=== PATIENT | female | born 1965 | race Caucasian/White ===

== ENCOUNTER 2018-05-24 20:26 | Inpatient (IN) | payer OTHER ==
[~2018-05-24] VITALS: Ht 154.9 cm; Wt 88.7 kg
[~2018-05-24 20:26] MED LIST: AMLO-218 PO; ATOR10TA23; CLOP75TA19; HYDR50TA PO; METO-53 PO; VALS80TA2 PO; [UNRECOGNIZED DRUG - REMARK]
[2018-05-24] MEDS ORDERED: SOD CHLORIDE 0.9% 100 ML ONE (20:43)
[2018-05-24] MEDS ORDERED: IOHEXOL 350MG/ML 50 ML BTL ONE (20:43)
[2018-05-24] MEDS ORDERED: IOHEXOL 100 ML ONE (20:43)
[2018-05-24] MEDS ORDERED: RANI150T5 PO (21:00)
[2018-05-24] MEDS ORDERED: IBUP-1541 PO (21:00)
[2018-05-24] MEDS ORDERED: AMLO-147 PO (21:01)
[2018-05-24] MEDS ORDERED: HYDR-3672 PO (21:01)
[2018-05-24] MEDS ORDERED: PANT40TA4 PO (21:02)
[2018-05-24] MEDS ORDERED: ERGO500013 PO (21:02)
[2018-05-24] MEDS ORDERED: LOSA1TAB25 PO (21:03)
[2018-05-24] MEDS ORDERED: GABA100C14 PO (21:03)
[2018-05-24] MEDS ORDERED: ASPI-817 PO (21:03)
[2018-05-24] MEDS ORDERED: ESOM40CA PO (21:04)
[2018-05-24] MEDS ORDERED: TIOT18CA INHALATION (21:04)
[2018-05-24] MEDS ORDERED: CLON0.2T5 PO (21:05)
[2018-05-24] MEDS ORDERED: SERT-165 PO (21:05)
[2018-05-24] MEDS ORDERED: TRA100 PO (21:06)
[2018-05-24] MEDS ORDERED: FURO20TA3 PO (21:06)
[2018-05-24] MEDS ORDERED: MECL-77 PO (21:06)
--- NOTE | 2018-05-24 21:15 | ERD ---
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 Approximately 3-1/2 hours prior to arrival patient reports experiencing worsening left-sided weakness and facial numbness with slurred speech. Multiple other complaints including vague, generalized, nonradiating chest pain, sore throat, shortness of breath but denies nausea, vomiting or diaphoresis. No abdominal pain or back pain. No leg pain or swelling. No URI symptoms or cough. No fevers or chills. Patient is Cambodian-speaking and online translation services used. ROS All systems reviewed and are negative except as per history of present illness. Medications Home Meds Active Scripts Clopidogrel Bisulfate (Clopidogrel) 75 Mg Tablet, 75 MG PO DAILY, #30 TAB Prov:NORA JOSE MD 05/26/18 Reported Medications Meclizine Hcl* (Meclizine Hcl*) 25 Mg Tablet, 25 MG PO DAILY PRN for DIZZINESS, TAB 05/24/18 Trazodone Hcl* (Trazodone Hcl*) 100 Mg Tablet, 100 MG PO QHS, #30 TAB 05/24/18 Furosemide* (Furosemide*) 20 Mg Tablet, 20 MG PO DAILY, #60 TAB 05/24/18 Clonidine Hcl* (Clonidine Hcl*) 0.2 Mg Tablet, 0.2 MG PO DAILY, TAB 05/24/18 Sertraline Hcl* (Sertraline Hcl*) 100 Mg Tablet, 100 MG PO DAILY, #30 TAB 05/24/18 Tiotropium [place]* (Spiriva*) 18 Mcg Cap.w.dev, 1 CAP INHALATION DAILY, #30 CAP 05/24/18 Losartan-Hydrochlorothiazide (Losartan-HCTZ) 100-25 Mg Tab, 1 TAB PO DAILY, TAB 05/24/18 Gabapentin* (Gabapentin*) 100 Mg Capsule, 100 MG PO QHS, #90 CAP 05/24/18 Pantoprazole* (Pantoprazole*) 40 Mg Tablet.dr, 40 MG PO AC BREAKFAST, TAB 05/24/18 Ergocalciferol (Vitamin D2) (VITAMIN D2) 50,000 Unit Capsule, 56132 UNIT PO Q7D, CAP 05/24/18 Hydralazine Hcl* (Hydralazine Hcl*) 50 Mg Tab, 50 MG PO BID, #120 TAB 05/24/18 Amlodipine Besylate* (Amlodipine Besylate*) 10 Mg Tablet, 10 MG PO DAILY, #30 TAB 05/24/18 Ranitidine Hcl* (Ranitidine Hcl*) 150 Mg Tablet, 150 MG PO HS, #30 TAB 05/24/18 Ibuprofen* (Ibuprofen*) 400 Mg Tablet, 400 MG PO Q6H PRN for PAIN, TAB 05/24/18 Discontinued Reported Medications Esomeprazole Mag Trihydrate (Nexium) 40 Mg Capsule.dr, 40 MG PO DAILY, #30 CAP 05/24/18 Aspirin* (Aspirin* EC) 81 Mg Tablet.dr, 81 MG PO DAILY, TAB 05/24/18 Allergies Allergies: Coded Allergies: No Known Allergy (Unverified , 05/24/18) PMhx/Soc Reviewed History of Surgery: Yes (see note) Anesthesia Reaction: No Hx Neurological Disorder: Yes (CVA) Hx Respiratory Disorders: No Hx Cardiac Disorders: Yes (HTN, ND;) Hx Psychiatric Problems: No Hx Miscellaneous Medical Probl: Yes (see note) Hx Alcohol Use: Yes (OCCASIONALLY) Hx Substance Use: No Hx Tobacco Use: Yes Smoking Status: Current every day smoker FmHx No sudden cardiac or cancer Physical Exam Vitals Temperature: 97.6. Blood pressure 215/112. Pulse: 94. Respiration: 14. O2 saturation 96% on room air. Physical Exam Const: Alert, anxious, moderate distress Head: Atraumatic Eyes: Normal Conjunctiva. Pupils equal reactive to light, extraocular moveme nts are intact. ENT: Normal External Ears, Nose and Mouth. Neck: Full range of motion. No meningismus. Carotids 2+ bilaterally without bruits. Resp: Clear to auscultation bilaterally Cardio: Regular rate and rhythm, no murmurs Abd: Soft, non tender, non distended. Normal bowel sounds Skin: No petechiae or rashes Back: No midline or flank tenderness Ext: No cyanosis, or edema Neur: Awake and alert. Mild dysarthria. Left upper extremity/left lower extremity weakness. Psych: Normal Mood and Affect Results 24 hrs Laboratory Tests Test 05/24/18 20:30 05/24/18 20:37 05/24/18 20:55 White Blood Count 8.1 10^3/ul Red Blood Count 4.06 10^6/ul Hemoglobin 11.7 g/dl Hematocrit 35.5 % Mean Corpuscular Volume 87.4 fl Mean Corpuscular Hemoglobin 28.8 pg Mean Corpuscular 33.0 g/dl Hemoglobin Concent Red Cell Distribution Width 13.2 % Platelet Count 208 10^3/UL Mean Platelet Volume 11.0 fl Immature Granulocytes % 0.200 % Neutrophils % 60.1 % Lymphocytes % 30.1 % Monocytes % 8.0 % Eosinophils % 1.1 % Basophils % 0.5 % Nucleated Red Blood Cells % 0.0 /100WBC Immature Granulocytes # 0.020 10^3/ul Neutrophils # 4.9 10^3/ul Lymphocytes # 2.4 10^3/ul Monocytes # 0.7 10^3/ul Eosinophils # 0.1 10^3/ul Basophils # 0.0 10^3/ul Nucleated Red Blood Cells # 0.0 10^3/ul Prothrombin Time 12.6 Sec Prothrombin Time Ratio 1.0 INR International Normalized Ratio 0.93 Activated Partial Thromboplast 26.0 Sec Time Sodium Level 140 mmol/L Potassium Level 3.6 mmol/L Chloride Level 102 mmol/L Carbon Dioxide Level 28 mmol/L Anion Gap 10 Blood Urea Nitrogen 12 mg/dl Creatinine 0.49 mg/dl Est Glomerular Filtrat Rate mL/min > 60 mL/min Glucose Level 137 mg/dl Calcium Level 8.4 mg/dl Creatine Kinase 59 IU/L Creatine Kinase Index 1.2 Creatinine Kinase MB (Mass) 0.71 ng/ml Troponin I < 0.012 ng/ml Triglycerides Level 399 mg/dl Cholesterol Level 205 mg/dl LDL Cholesterol, Calculated 94 mg/dl HDL Cholesterol 31 mg/dl Cholesterol/HDL Ratio 6.6 RATIO Ethyl Alcohol Level < 10.0 mg/dl Bedside Glucose 175 mg/dL Hemoglobin A1c 5.5 % Current Medications Medications Dose Sig/Wilfred Start Time Status Last (Trade) Ordered Route PRN Stop Time Admin Dose Reason Admin IV Flush 10 ml STK-MED 05/24/18 DC 05/24/18 (NS 10 ml) ONCE .ROUTE 20:43 20:43 05/24/18 20:44 Sodium 100 ml @ ud STK-MED 05/24/18 DC 05/24/18 Chloride ONCE .ROUTE 20:43 20:43 05/24/18 20:44 Iohexol 100 ml @ ud STK-MED 05/24/18 DC 05/24/18 ONCE .ROUTE 20:43 20:43 05/24/18 20:44 Iohexol 50 ml STK-MED 05/24/18 DC 05/24/18 (Omnipaque ONCE .ROUTE 20:43 20:43 350mg/ ml) 05/24/18 20:44 Aspirin 325 mg ONCE ONCE 05/24/18 DC 05/24/18 (Aspirin) PO 22:00 21:54 05/24/18 22:01 Procedures/MDM DOCUMENTS REVIEWED: ED nurse, prior records. Left heart cath 2013 which revealed normal coronary arteries. EKG: Time: 2100. Sinus rhythm. Ventricular rate 91. Left ventricular hypertrophy. Repolarization abnormality. T wave inversions in leads II, 3, aVF, 1, V3 through V6 which is unchanged from the EKG of November 2013. No ectopy. My Interpretation IMAGING: PROCEDURE: Noncontrast CT Head. CLINICAL INDICATION: Code stroke. Acute neurological deficit. TECHNIQUE: Noncontrast CT of the head was obtained. The administered radiation dose was CTDI vol = 40 mGy, DLP = 634 mGy-cm. DICOM images are available. One or more of the following dose reduction techniques were used: Automated exposure control, Adjustment of the mA and/or kV according to patient size, or Use of iterative reconstruction technique. COMPARISON: CT brain 03/19/2012 FINDINGS: There is no acute intracranial hemorrhage, midline shift, or mass effect. The cerebral dotson-white matter differentiation appears preserved. No extra-axial co llection is seen. The cerebral sulci and ventricles are within normal limits in size and configuration for patient's age. The cerebral attenuation is within normal limits. A small right sub lenticular cyst is noted. The basilar cisterns are preserved. The brainstem and cerebellum are grossly unremarkable, although suboptimally evaluated with CT secondary to beam-hardening artifact. The visualized orbits are unremarkable. The visualized paranasal sinuses and mastoid air cells are well-aerated. There is partial pneumatization of the bilateral anterior clinoid processes and greater wing of the right sphenoid bone. No acute calvarial fracture or suspicious osseous lesion is identified. IMPRESSION: No acute intracranial hemorrhage, mass effect, extra-axial fluid collection, or evidence of large vascular territory acute transcortical infarct. If there is continued clinical concern for acute ischemia, MRI brain with diffusion weighted imaging may provide a more sensitive evaluation. Call report was made to Dr. Bryson at 20:42 on 05/24/2018. RPTAT: AA Physician Rubén Date Time Electronically viewed and signed by Sumeet Akins Physician on 05/24/2018 20:47 RC/ PROCEDURE: CTA Head and neck. CLINICAL INDICATION: Code stroke. Acute neurologic deficit. TECHNIQUE: CTA of the head and neck was obtained. Images were obtained following the intravenous contrast administration of 125 cc Omnipaque 350 contrast. The administered radiation dose was CTDI vol = 7.4, 18.3 mGy, DLP = 634.7 mGy-cm. DICOM images are available. Coronal and sagittal as well as maximal intensity projection reformations were obtained. 3-D reconstructions were obtained. One or more of the following dose reduction techniques were used: Automated exposure control, Adjustment of the mA and/or kV according to patient size, or Use of iterative reconstruction technique. COMPARISON: Noncontrast CT of the head from the same day. FINDINGS: CTA neck: Dental amalgam related streak artifact limits evaluation at distal cervical levels. Motion artifact from the aortic arch to the craniocervical junction further limits evaluation. Aorta: The visualized aortic arch is normal in caliber. There is common origin of the innominate artery and left common carotid artery off the aortic arch, a normal anatomic variant. Right common carotid artery: Patent without evidence of stenosis. Right internal carotid artery: Patent without evidence of stenosis. Right external carotid artery: Patent without evidence of stenosis. Left common carotid artery: Patent without evidence of stenosis. Left internal carotid artery: Patent without evidence of stenosis. Left external carotid artery: Patent without evidence of stenosis. V1/V2/V3 vertebral arteries: Patent bilaterally without evidence of stenosis. Vertebral artery dominance: The right vertebral artery is slightly dominant. CTA head: Carotid arteries: Patent bilaterally without evidence of stenosis. Anterior cerebral arteries: Patent bilaterally without evidence of stenosis. Middle cerebral arteries: Patent bilaterally without evidence of stenosis. Posterior cerebral arteries: Patent bilaterally without evidence of stenosis. Anterior communicating artery: Present. Posterior communicating arteries: Not visualize bilaterally and likely small or absent bilaterally. Basilar artery: Patent without evidence of stenosis. V4 Vertebral arteries: Patent bilaterally without evidence of stenosis. Aneurysm: No cerebral aneurysm is identified. Venous sinuses: Patent. CT neck: There is no cervical adenopathy. The thyroid gland, as visualized, is grossly unremarkable. Limited evaluation of the partially imaged upper lungs reveals mild bilateral posterior dependent atelectasis. There is minimal degenerative enthesopathy of the visualized spine. IMPRESSION: CTA Head 1. No intracranial large arterial thrombus or occlusion. 2. No intracranial large arterial significant stenosis. 3. No cerebral aneurysm. CTA Neck 1. Slightly limited evaluation secondary to dental amalgam related streak artifact and diffuse motion artifact. 2. No bilateral cervical internal carotid artery stenosis by NASCET criteria. As per NASCET criteria, direct measurement of vessel diameter was made in reference to measurement of the ipsilateral distal internal carotid artery diameter. 3. Patent bilateral V1-V3 vertebral arteries without evidence of significant stenosis. Further findings described above. Call report was made to Dr. Bryson at 21:05 on 05/24/2018. RPTAT: AA Physician Rubén Date Time Electronically viewed and signed by Physician Rubén on 05/24/2018 21:10 RC/ CRITICAL CARE TIME: Due to the high probability of sudden clinically significant neurologic, cardiovascular and hemodynamic deterioration, this patient with acute neurologic deficits and chest pain required multiple, frequent reevaluations of vital signs and response to therapy. Additional critical care time was spent in obtaining supplemental history from family, extensive review of prior medical records, interpretation of relevant clinical data, consultation with radiology, neurology as well as arranging for admission and ongoing care with . TOTAL CRITICAL CARE TIME: 40 minutes not including other separately reportable procedures. MEDICAL DECISION MAKIN-year-old female with a history of hypertension, hyperlipidemia, multiple CVAs most recently October 2017 treated with TPA with residual left-sided weakness and heart disease presents to the ED via rescue ambulance with worsening left-sided weakness as a potential stroke. Last known normal was when patient went to sleep at approximately 1 AM. Within 10 minutes of arrival NIH stroke scale: 5. Code stroke protocol initiated. CT of the brain to evaluate for hemorrhage, infarct, mass is unremarkable. CTA of the head/neck reveals no evidence of large vessel occlusion. Tele-neurology consult obtained. Refer to Dr. Mustafa's note. No indication for TPA or endovascular intervention. As per family patient is almost completely back to baseline. Possible TIA. Hypertension with arrival blood pressure 215/112 but 10 minutes later was down to 183/78 Without intervention. Permissive hypertension. EKG reveals left ventricular hypertrophy but no acute ischemic changes or dysrhythmia, unchanged from November 2013. Chest pain and sore throat/tightness of uncertain etiology. No signs of an acute allergic reaction, angioedema, pharyngitis or parapharyngeal infection. ACS considered but no ischemic EKG changes or elevated troponin. Aspirin given. No radiographic evidence of pne umonia or pneumothorax. Pulmonary embolism is unlikely and CT pulmonary angiogram deferred. Admit to telemetry for further evaluation and management. Counseled patient and family regarding diagnostic workup, diagnosis and need for followup. Understands to return to ED if symptoms recur, worsen or any other concerns. Departure Diagnosis: Primary Impression: Acute weakness Additional Impressions: History of CVA with residual deficit Hypertension Hypertension type: essential hypertension Qualified Codes: I10 - Essential (primary) hypertension Chest pain of uncertain etiology Condition: Serious JACEY BRYSON MD May 24, 2018 21:15
--- NOTE | 2018-05-24 21:33 | STROKE ---
Date/Time of Note Date/Time of Note DATE: 05/24/18 TIME: 21:31 Patient Information General Arrival Date Age 53 Gender female Weight 79.55 kg POC Glucose Glucose Result Bedside Glucose - 72 Hours Test 05/24/18 20:37 Bedside Glucose 175 mg/dL (70-220) Vital Signs Vital Signs Vital Signs Date Temp Pulse Resp B/P (MAP) Pulse Ox O2 O2 Flow FiO2 Time Delivery Rate 05/24/18 Nasal 3 20:37 Cannula 05/24/18 88 20 183/78 98 20:37 (113) Patient History Current Medications Allergies: Coded Allergies: No Known Allergy (Unverified , 05/24/18) Labs Coagulation Labs: Coagulation Test 05/24/18 20:30 Activated Partial Thromboplast Time 26.0 Sec (23.0-35.0) History & Physical History of Present Illness 53 M PMH HTN, stroke with residual left hemiparesis LKW 1700 PST with worsening of her baseline left-sided weakness. NCHCT without acute pathology per [facility]. Patien[facility] reports shortness of breath and her "throat closing up". Patient reports worsening of her baseline weakness in her left arm and leg. NIH Stroke Scale NIH Stroke Scale [id number] Total Score: [id number] Date/Time Recorded DATE: 05/24/18 TIME: 21:11 Submitted By Stephan Isaac t-PA Imaging Review Date/Time Imaging Reviewed DATE: 05/24/18 TIME: 21:31 t-PA Administration Recommendation: No Weight 79.55 kg Recommedation submitted by Stephan Isaac Recommendations Recommendation 53 F with baseline left hemiparesis from prior stroke, with worsening of her baseline left hemiparesis today. No new focal deficits. Family member at bedside is reporting that her hemiparesis is at her baseline. In the absence of new, focal neurologic deficits stroke is less likely. Patient's major complaint is of shortness of breath and throat "closing" sensation. Could be recrudescence in setting of other pathology. CTA and NCHCT without acute pathology. - Agree with work-up of dyspnea and ENT causes of dysphagia - Further care per local Neurology team STEPHAN ISAAC MD May 24, 2018 21:33
[2018-05-24] MEDS ORDERED: ASPIRIN 325 MG TAB PO ONE (22:00)
[2018-05-24] MEDS ORDERED: ONDANSETRON 4 MG INJ IV PRN (22:30)
[2018-05-24] MEDS ORDERED: ACETAMINOPHEN 325 MG TAB PO PRN (22:30)
--- NOTE | 2018-05-24 23:56 | HP ---
Date/Time of Note Date/Time of Note DATE: 05/24/18 TIME: 23:56 Assessment/Plan VTE Prophylaxis Pharmacological prophylaxis: heparin Lines/Catheters IV Catheter Type (from Nrs): Saline Lock Assessment/Plan Assessment/Plan 1. Probable TIA vs new CVA -Patient with a history of multiple CVAs with left-sided hemiparesis. According to family, it seems like her hemiparesis is at baseline -Head CT and angiogram negative for acute findings -We will order MRI of the brain -Seen by telemetry neurologist. Will place a formal neurology consult -Continue antiplatelet and statin -PT eval 2. Hypertensive emergency: BP better controlled. Adjust meds as needed 3. Dysphagia, throat pain -speech/swallow eval -CT neck 4. GERD: Continue PPI 5. Depression: Continue sertraline Result Diagram: 05/24/18202905/24/182029 Results 24hrs Laboratory Tests Test 05/24/18 20:30 05/24/18 20:37 05/24/18 20:55 White Blood Count 8.1 Red Blood Count 4.06 L Hemoglobin 11.7 L Hematocrit 35.5 L Mean Corpuscular Volume 87.4 Mean Corpuscular Hemoglobin 28.8 L Mean Corpuscular Hemoglobin Concent 33.0 Red Cell Distribution Width 13.2 Platelet Count 208 Mean Platelet Volume 11.0 H Immature Granulocytes % 0.200 Neutrophils % 60.1 Lymphocytes % 30.1 Monocytes % 8.0 Eosinophils % 1.1 Basophils % 0.5 Nucleated Red Blood Cells % 0.0 Immature Granulocytes # 0.020 Neutrophils # 4.9 Lymphocytes # 2.4 Monocytes # 0.7 Eosinophils # 0.1 Basophils # 0.0 Nucleated Red Blood Cells # 0.0 Prothrombin Time 12.6 Prothrombin Time Ratio 1.0 INR International Normalized Ratio 0.93 Activated Partial Thromboplast Time 26.0 Sodium Level 140 Potassium Level 3.6 Chloride Level 102 Carbon Dioxide Level 28 Anion Gap 10 Blood Urea Nitrogen 12 Creatinine 0.49 Est Glomerular Filtrat Rate mL/min > 60 Glucose Level 137 Calcium Level 8.4 Creatine Kinase 59 Creatine Kinase Index 1.2 Creatinine Kinase MB (Mass) 0.71 Troponin I < 0.012 Triglycerides Level 399 H Cholesterol Level 205 H LDL Cholesterol, Calculated 94 HDL Cholesterol 31 L Cholesterol/HDL Ratio 6.6 Ethyl Alcohol Level < 10.0 H Bedside Glucose 175 Hemoglobin A1c 5.5 HPI/ROS Admit Date/Time Admit Date/Time Hx of Present Illness This is a 53-year-old female with a history of hypertension, GERD, depression, multiple CVAs with residual left-sided deficit who presented to the ER complaining of worsening left-sided deficit as well as slurred speech. Patient also complains of dysphagia/throat pain. She appears weak, speaking slowly. When presents to ER, BP was 215/112. Head CT and CT angiogram of the head and neck without acute findings. Patient was evaluated by the tele-neurologist. According to his notes, family at the bedside reported that her hemiparesis is at baseline. He had no additional recommendation. PMH/Family/Social Past Medical History Medications Current Medications Ondansetron HCl (Zofran Inj) 4 mg BRIDGE ORDER PRN IV NAUSEA AND/OR VOMITING; Start 05/24/18 at 22:30; Stop 05/25/18 at 22:29 Acetaminophen (Tylenol Tab) 650 mg ER BRIDGE PRN PO MILD PAIN(1-3)OR ELEVATED TEMP; Start 05/24/18 at 22:30; Stop 05/25/18 at 22:29 Coded Allergies: No Known Allergy (Unverified , 05/24/18) Family History Significant Family History: no pertinent family hx Social History Alcohol Use: none Smoking Status: Current every day smoker Drug Use: none Exam/Review of Systems Vital Signs Vitals Vital Signs Date Temp Pulse Resp B/P (MAP) Pulse Ox O2 O2 Flow FiO2 Time Delivery Rate 05/24/18 Nasal 3 20:37 Cannula 05/24/18 88 20 183/78 98 20:37 (113) Exam Exam Constitutional: alert, oriented, well developed, other Head: normocephalic, atraumatic Respiratory: normal air movement Cardiovascular: regular rate and rhythm Gastrointestinal: soft Extremities: normal pulses PMH: see HPI PSH: see HPI . MANNY SAMPSON MD May 24, 2018 23:56
[2018-05-25] VITALS (9 sets, daily range): BP systolic 141–186; BP diastolic 67–89; PULSE 72–88; RESP 14–20; Ht 154.9 cm; Wt 88.7 kg
[2018-05-25] MEDS ORDERED: ONDANSETRON 4 MG INJ IV PRN (06:30)
[2018-05-25] MEDS ORDERED: NACL 0.9% 3 ML SYG IV SCH (06:30)
[2018-05-25] MEDS ORDERED: ACETAMINOPHEN 325 MG TAB PO PRN (06:30)
[2018-05-25] MEDS ORDERED: MECLIZINE 25 MG TAB PO PRN (06:30)
[2018-05-25] MEDS: ERGOCALCIFEROL 50,000 UNIT CAP PO SCH ×2 (06:30→12:33)
[2018-05-25] MEDS: PANTOPRAZOLE (EC) 40 MG TAB PO SCH ×2 (07:00→11:17)
[2018-05-25] MEDS: FUROSEMIDE 20 MG TAB PO SCH ×2 (09:00→11:26)
[2018-05-25] MEDS: SERTRALINE 100 MG TAB PO SCH ×2 (09:00→11:25)
[2018-05-25] MEDS: TIOTROPIUM 18 MCG CAPSULE INHA DEV INH SCH (09:00)
[2018-05-25] MEDS: ASPIRIN (EC) 81 MG TAB PO SCH ×2 (09:00→11:25)
[2018-05-25] MEDS: LOSARTAN 50 MG TAB PO SCH ×2 (09:00→11:25)
[2018-05-25] MEDS: HYDROCHLOROTHIAZIDE 25 MG TAB PO SCH ×2 (09:00→11:25)
[2018-05-25] MEDS: AMLODIPINE 10 MG TAB PO SCH ×2 (09:00→11:17)
[2018-05-25] MEDS: ENOXAPARIN 40 MG/0.4 ML SYG SC SCH (10:55)
--- NOTE | 2018-05-25 14:39 | PN ---
Date/Time of Note Date/Time of Note DATE: 05/25/18 TIME: 14:30 Assessment/Plan VTE Prophylaxis Risk score (from Ns)>0 risk: 2 SCD applied (from Ns): Yes Pharmacological prophylaxis: LMWH Lines/Catheters IV Catheter Type (from Nrs): Saline Lock Urinary Cath still in place: No Assessment/Plan Assessment/Plan 1. Probable TIA, follow up with MRI 2. History of multiple CVAs with left-sided hemiparesis, aspirin, cannot tolerate lipitor on crestor, PT eval 3. Hypertensive emergency, add norvasc 4. GERD: Continue PPI 5. Depression: Continue sertraline 6. DVT prophylaxis: lovenox Result Diagram: 05/25/18 0647 05/25/18 0647 Results 24hrs Laboratory Tests Test 05/24/18 20:30 05/24/18 20:37 05/24/18 20:55 05/25/18 00:24 White Blood Count 8.1 Red Blood Count 4.06 L Hemoglobin 11.7 L Hematocrit 35.5 L Mean Corpuscular 87.4 Volume Mean Corpuscular 28.8 L Hemoglobin Mean Corpuscular 33.0 Hemoglobin Concent Red Cell 13.2 Distribution Width Platelet Count 208 Mean Platelet Volume 11.0 H Immature 0.200 Granulocytes % Neutrophils % 60.1 Lymphocytes % 30.1 Monocytes % 8.0 Eosinophils % 1.1 Basophils % 0.5 Nucleated Red Blood 0.0 Cells % Immature 0.020 Granulocytes # Neutrophils # 4.9 Lymphocytes # 2.4 Monocytes # 0.7 Eosinophils # 0.1 Basophils # 0.0 Nucleated Red Blood 0.0 Cells # Prothrombin Time 12.6 Prothrombin Time 1.0 Ratio INR International 0.93 Normalized Ratio Activated 26.0 Partial Thromboplast Time Sodium Level 140 Potassium Level 3.6 Chloride Level 102 Carbon Dioxide Level 28 Anion Gap 10 Blood Urea Nitrogen 12 Creatinine 0.49 Est Glomerular > 60 Filtrat Rate mL/min Glucose Level 137 Calcium Level 8.4 Creatine Kinase 59 Creatine Kinase 1.2 Index Creatinine Kinase MB 0.71 (Mass) Troponin I < 0.012 Triglycerides Level 399 H Cholesterol Level 205 H LDL Cholesterol, 94 Calculated HDL Cholesterol 31 L Cholesterol/HDL 6.6 Ratio Ethyl Alcohol Level < 10.0 H Bedside Glucose 175 Hemoglobin A1c 5.5 Urine Color STRAW Urine Clarity CLEAR Urine pH 7.0 Urine Specific 1.050 H [place] Urine Ketones NEGATIVE Urine Nitrite NEGATIVE Urine Bilirubin NEGATIVE Urine Urobilinogen NEGATIVE Urine Leukocyte NEGATIVE Esterase Urine Hemoglobin NEGATIVE Urine Glucose NEGATIVE Urine Total Protein NEGATIVE Urine Opiates Screen NEGATIVE Urine Barbiturates NEGATIVE Urine Amphetamines NEGATIVE Screen Urine NEGATIVE Benzodiazepines Screen Urine Cocaine Screen NEGATIVE Urine Cannabinoids NEGATIVE Test 05/25/18 06:47 White Blood Count 6.2 # Red Blood Count 4.44 Hemoglobin 12.7 Hematocrit 39.2 Mean Corpuscular 88.3 Volume Mean Corpuscular 28.6 L Hemoglobin Mean Corpuscular 32.4 Hemoglobin Concent Red Cell 13.4 Distribution Width Platelet Count 208 Mean Platelet Volume 11.2 H Immature 0.200 Granulocytes % Neutrophils % 52.3 Lymphocytes % 36.0 Monocytes % 8.8 Eosinophils % 1.9 Basophils % 0.8 Nucleated Red Blood 0.0 Cells % Immature 0.010 Granulocytes # Neutrophils # 3.2 Lymphocytes # 2.2 Monocytes # 0.5 Eosinophils # 0.1 Basophils # 0.1 Nucleated Red Blood 0.0 Cells # Sodium Level 141 Potassium Level 4.1 Chloride Level 108 Carbon Dioxide Level 27 Anion Gap 6 Blood Urea Nitrogen 11 Creatinine 0.49 Est Glomerular > 60 Filtrat Rate mL/min Glucose Level 111 Calcium Level 9.3 Magnesium Level 2.3 Total Bilirubin 0.4 Direct Bilirubin 0.00 Indirect Bilirubin 0.4 Aspartate Amino 26 Transf (AST/SGOT) Alanine 46 Aminotransferase (AL T/SGPT) Alkaline Phosphatase 109 Total Protein 7.0 Albumin 3.8 Globulin 3.20 Albumin/Globulin 1.18 Ratio Subjective 24 Hr Interval Summary Free Text/Dictation left sided weakness, returns t baseline today Exam/Review of Systems Vital Signs Vitals Vital Signs Date Temp Pulse Resp B/P (MAP) Pulse Ox O2 O2 Flow FiO2 Time Delivery Rate 05/25/18 152/84 12:42 (106) 05/25/18 85 12:00 05/25/18 98.6 20 98 Nasal 11:30 Cannula 05/25/18 2.0 09:02 Exam Constitutional: alert, oriented, well developed, obese Head: normocephalic, atraumatic Eyes: nl conjunctiva, EOMI, nl lids, nl sclera, PERRL ENMT: nl external ears & nose, nl lips & teeth, nl nasal mucosa & septum Neck: supple, non-tender Respiratory: clear to auscultation, normal air movement; No congested cough, No crackles/rales, No diminished breath sounds, No intercostal retraction, No labored breathing, No respirations, No tactile ann-marie mitus, No wheezing, No other Cardiovascular: regular rate and rhythm, nl pulses; No bruits, No diastolic murmur, No edema, No gallop, No irregular rhythm, No jugular venous distention (JVD), No murmurs/extra sounds, No rub, No systolic murmur, No S3, No S4, No other Gastrointestinal: soft, nl liver, spleen, non-tender Musculoskeletal: nl extremities to inspection Extremities: normal pulses; No calf tenderness, No cyanosis, No clubbing, No edema, No pitting pedal edema, No palpable cord, No tenderness, No other Neurological: 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 II-XII intact, nl mental status, nl speech, focal weakness (LLE/LUE 3/5) Medications Medications Current Medications Ondansetron HCl (Zofran Inj) 4 mg BRIDGE ORDER PRN IV NAUSEA AND/OR VOMITING; S tart 05/24/18 at 22:30; Stop 05/25/18 at 22:29 Acetaminophen (Tylenol Tab) 650 mg ER BRIDGE PRN PO MILD PAIN(1-3)OR ELEVATED TEMP; Start 05/24/18 at 22:30; Stop 05/25/18 at 22:29 IV Flush (NS 3 ml) 3 ml PER PROTOCOL IV ; Start 05/25/18 at 06:30 Ondansetron HCl (Zofran Inj) 4 mg Q6H PRN IV NAUSEA AND/OR VOMITING; Start 05/25/18 at 06:30 Acetaminophen (Tylenol Tab) 650 mg Q6H PRN PO PAIN LEVEL 1-3 OR FEVER; Start 05/25/18 at 06:30 Enoxaparin Sodium (Lovenox) 40 mg DAILY SC Last administered on 05/25/18at 10:55; Admin Dose 40 MG; Start 05/25/18 at 09:00 Amlodipine Besylate (Norvasc) 10 mg DAILY PO Last administered on 05/25/18at 11:17; Admin Dose 10 MG; Start 05/25/18 at 09:00 Aspirin (Halfprin) 81 mg DAILY PO Last administered on 05/25/18at 11:25; Admin Dose 81 MG; Start 05/25/18 at 09:00 Ergocalciferol (Drisdol) 50,000 unit Q7D PO Last administered on 05/25/18at 12:33; Admin Dose 50,000 UNIT; Start 05/25/18 at 06:30 Furosemide (Lasix) 20 mg DAILY PO Last administered on 05/25/18at 11:26; Admin Dose 20 MG; Start 05/25/18 at 09:00 Gabapentin (Neurontin) 100 mg QHS PO ; Start 05/25/18 at 21:00 Hydralazine HCl (Apresoline) 50 mg BID PO Last administered on 05/25/18at 11:17; Admin Dose 50 MG; Start 05/25/18 at 09:00 Meclizine HCl (Antivert) 25 mg DAILY PRN PO prn; Start 05/25/18 at 06:30 Pantoprazole (Protonix Tab) 40 mg AC BREAKFAST PO Last administered on 05/25/18at 11:17; Admin Dose 40 MG; Start 05/25/18 at 07:00 Ranitidine HCl (Zantac) 150 mg HS PO ; Start 05/25/18 at 21:00 Sertraline HCl (Zoloft) 100 mg DAILY PO ; Start 05/25/18 at 09:00 Tiotropium [place] (Spiriva) 18 inh DAILY INH ; Start 05/25/18 at 09:00 Trazodone HCl (Desyrel) 100 mg QHS PO ; Start 05/25/18 at 21:00 Losartan Potassium (Cozaar) 100 mg DAILY PO Last administered on 05/25/18at 11:25; Admin Dose 100 MG; Start 05/25/18 at 09:00 Hydrochlorothiazide (Hydrochlorothiazide) 25 mg DAILY PO Last administered on 05/25/18at 11:25; Admin Dose 25 MG; Start 05/25/18 at 09:00 NORA JOSE MD May 25, 2018 14:39
--- NOTE | 2018-05-25 15:36 | RADRPT ---
Echocardiogram Report Patient Name: RONAL PEPPER Gender: Female Date: 1965 Study Date: 25-May-2018 Customer Orders Clerk: TB Location: [id number] Ref. Physician: MANNY SAMPSON Quality: Adequate Procedures: Transthoracic echocardiogram with complete 2D, M-Mode, and doppler examination. Indications: Cerebrovascular Accident. Transient Ischemic Attack. 2D/M Mode Doppler Measurement Value Normal Ranges Measurement Value Normal Ranges LVIDd 2D 4.1 3.5 - 5.6 cm AV Mean Wade 0.7 m/sec LVIDs 2D 3.0 2.1 - 4.1 cm AV Mean PG 2.0 mmHg LVPWd 2D 0.9 0.6 - 1.1 cm AV Peak Wade 0.9 m/sec IVSd 2D 1.2 0.6 - 1.1 cm AV Peak PG 3.0 mmHg AoR Diam 2D 2.8 2.0 - 3.7 cm AV VTI 21.6 cm LA/Ao 2D 1 0 - 1 LVOT Mean Wade 0.7 m/sec EF 2D 51.0 50.0 - 65.0 % LVOT Mean PG 2.0 mmHg LA Dimen 2D 3.7 2.3 - 4.0 cm LVOT Peak Wade 0.9 m/sec IVC Diam 1.7 1.2 - 2.0 LVOT Peak PG 4.0 mmHg MV E Peak Wade 0.9 m/sec MV A Peak Wade 1.0 m/sec MV E/A 0.9 MV PHT 72.0 msec MV Decel Time 243 msec MV Decel [place] 4 MV E/A 0.9 MV PHT 72.0 msec MVA PHT 3.1 cm2 MR Peak PG 103.0 mmHg MR Peak Wade 5.1 m/sec TR Peak Wade 2.1 m/sec TR Peak PG 18.0 mmHg RVSP 21.0 mmHg RA Pressure 3.0 Findings Left Ventricle: Normal left ventricular systolic function. Normal left ventricular cavity size. Normal left ventricular wall thickness. Ejection fraction is visually estimated at 5560 %. Tissue Doppler/Mitral Doppler indices are consistent with impaired relaxation (Stage I diastolic dysfunction). Right Ventricle: Normal right ventricular size. Normal right ventricular systolic function. Left Atrium: The left atrium is normal in size. Right Atrium: The right atrium is normal in size. RA Pressure=3. Mitral Valve: Normal appearance and function of the mitral valve with trace physiologic regurgitation. Aortic Valve: Normal appearance of the aortic valve. No significant aortic stenosis or insufficiency. Tricuspid Valve: Normal appearance and function of the tricuspid valve with trace physiologic regurgitation. Normal right ventricular systolic pressure. Estimated peak PA systolic pressure 21 mmHg. Pulmonic Valve: Normal pulmonic valve appearance. Pericardium: Normal pericardium with no significant pericardial effusion. Aorta: Normal aortic root. IVC: Normal size and normal respiratory collapse consistent with normal right atrial pressure. Conclusions 1.Normal left ventricular systolic function. Normal left ventricular cavity size. Normal left ventricular wall thickness. Ejection fraction is visually estimated at 55-60 %. Tissue Doppler/Mitral Doppler indices are consistent with impaired relaxation (Stage I diastolic dysfunction). 2.Normal appearance and function of the mitral valve with trace physiologic regurgitation. 3.Normal appearance and function of the tricuspid valve with trace physiologic regurgitation. Normal right ventricular systolic pressure. Estimated peak PA systolic pressure 21 mmHg. Electronically Signed By: Omega Churchill 25-May-2018 15:35:34 -0800 Patient Name: RONAL PEPPER Study Date: 25-May-2018 [id number]
[2018-05-25] MEDS ORDERED: traZODone 100 MG TAB PO SCH (21:00)
[2018-05-25] MEDS ORDERED: GABAPENTIN 100 MG CAP PO SCH (21:00)
[2018-05-25] MEDS ORDERED: RANITIDINE 150 MG TAB PO SCH (21:00)
[2018-05-26] VITALS (10 sets, daily range): BP systolic 102–137; BP diastolic 59–89; PULSE 16–97; RESP 1–19
[2018-05-26] MEDS: PANTOPRAZOLE (EC) 40 MG TAB PO SCH (06:04)
[2018-05-26] MEDS ORDERED: INFLUENZA VIRUS VACCINE 0.5 ML (DISPENSING) IM* ONE (09:00)
[2018-05-26] MEDS: SERTRALINE 100 MG TAB PO SCH (09:00)
[2018-05-26] MEDS: ASPIRIN (EC) 81 MG TAB PO SCH (09:01)
[2018-05-26] MEDS: LOSARTAN 50 MG TAB PO SCH (09:03)
[2018-05-26] MEDS: HYDROCHLOROTHIAZIDE 25 MG TAB PO SCH (09:04)
[2018-05-26] MEDS: TIOTROPIUM 18 MCG CAPSULE INHA DEV INH SCH (09:04)
[2018-05-26] MEDS: AMLODIPINE 10 MG TAB PO SCH (09:06)
[2018-05-26] MEDS: FUROSEMIDE 20 MG TAB PO SCH (09:06)
[2018-05-26] MEDS: ENOXAPARIN 40 MG/0.4 ML SYG SC SCH (09:07)
[2018-05-26] MEDS ORDERED: CLOP75TA27 PO ×2 (14:56→14:57)
[2018-05-26] MEDS ORDERED: CLOPIDOGREL 75 MG TAB PO SCH (15:00)
--- NOTE | 2018-05-26 15:04 | DS ---
Date/Time of Note Date/Time of Note DATE: 05/26/18 TIME: 14:58 Discharge Summary Admission/Discharge Info Admit Date/Time May 24, 2018 at 22:17 Discharge Date/Time Discharge Diagnosis 1. Probable TIA, negative brain MRI, change aspirin to plavix, follow up with PCP and neurology 2. History of multiple CVAs with left-sided hemiparesis, plavix and crestor 3. Hypertension, controlled 4. GERD: Continue PPI 5. Depression: Continue sertraline Patient Condition: Stable Procedures PROCEDURE: MR Brain noncontrast. CLINICAL INDICATION: Left-sided numbness/paresthesias. TECHNIQUE: Multiplanar multisequence noncontrast MRI of the brain was performed. COMPARISON: CT and CTA brain 05/24/2018 FINDINGS: There is no restricted diffusion to suggest acute ischemia/infarct. There is no evidence of acute intracranial hemorrhage, midline shift, or mass effect. No extra-axial fluid collection is seen. The cerebral sulci and ventricles are within normal limits in size and configuration for patient's age. Prominent perivascular spaces are noted in the bilateral anterior perforated substance. The cerebral signal intensity is within normal limits. The basilar cisterns are preserved. The brainstem and cerebellum appear within normal limits in size, morphology, and signal intensity. GRE images show no evidence of hemosiderin deposition. The sella, parasellar, and suprasellar regions are unremarkable. The intracranial large vascular flow voids are preserved, suggesting patency. The orbits are unremarkable. The visualized paranasal sinuses and mastoid air cells appear well-aerated. No destructive osseous lesion is detected. IMPRESSION: No evidence of an acute intracranial process. Further findings as detailed above. RPTAT: HR[facility] Physician Rubén Date Time Electronically viewed and signed by Physician Rubén on 05/25/2018 19:04 PROCEDURE: CT neck without contrast CLINICAL INDICATION: DYSPHAGIA TECHNIQUE: Continuous axial CT images were obtained through the neck. Coronal and sagittal reconstructions were performed. No intravenous contrast was administered.. The calculated radiation dose measures 242 mGy centimeters. The CTDI measures 10 mGy One or more of the following dose reduction techniques were used: Automated exposure control. Adjustment of the mA and/or kV according to patient size. Use of iterative reconstruction technique. COMPARISON: none FINDINGS: The nasopharynx, oropharynx, hypopharynx, and larynx appear normally patent, without abnormal mass or soft tissue thickening. The parotid glands, sub mandibular glands, and sublingual glands appear normal in size and configuration. The oral tongue and base of tongue appear unremarkable. The floor of mouth appears normal. There is scattered bilateral level II lymph nodes, without pathologic enlarge ment identified. Limited images the lung apices are unremarkable. The cervical spine appears intact. There is a retention cyst or polyp in the right maxillary sinus. IMPRESSION: 1. No abnormal neck mass or pathologic enlarged adenopathy identified on noncontrast exam. 2. Mild chronic sinusitis change. RPTAT: HBST .Mihir Salazar MD, MD Date Time Electronically viewed and signed by .Mihir Salazar MD, on 05/25/2018 22:17 .T/ Hospital Course This is a 53-year-old female with a history of hypertension, GERD, depression, multiple CVAs with residual left-sided deficit who presented to the ER complaining of worsening left-sided deficit as well as slurred speech. Patient also complains of dysphagia/throat pain. She appears weak, speaking slowly. When presents to ER, BP was 215/112. Head CT and CT angiogram of the head and neck without acute findings. Patient was evaluated by the tele-neurologist. According to his notes, family at the bedside reported that her hemiparesis is at baseline. MRI of brain no new infarction or bleeding. I will change her aspirin to plavix and have her fol;low up with PCP and neurologist outpatient. Home Meds Active Scripts Clopidogrel Bisulfate (Clopidogrel) 75 Mg Tablet, 75 MG PO DAILY, #30 TAB Prov:NORA JOSE MD 05/26/18 Reported Medications Meclizine Hcl* (Meclizine Hcl*) 25 Mg Tablet, 25 MG PO DAILY PRN for DIZZINESS, TAB 05/24/18 Trazodone Hcl* (Trazodone Hcl*) 100 Mg Tablet, 100 MG PO QHS, #30 TAB 05/24/18 Furosemide* (Furosemide*) 20 Mg Tablet, 20 MG PO DAILY, #60 TAB 05/24/18 Clonidine Hcl* (Clonidine Hcl*) 0.2 Mg Tablet, 0.2 MG PO DAILY, TAB 05/24/18 Sertraline Hcl* (Sertraline Hcl*) 100 Mg Tablet, 100 MG PO DAILY, #30 TAB 05/24/18 Tiotropium [place]* (Spiriva*) 18 Mcg Cap.w.dev, 1 CAP INHALATION DAILY, #30 CAP 05/24/18 Losartan-Hydrochlorothiazide (Losartan-HCTZ) 100-25 Mg Tab, 1 TAB PO DAILY, TAB 05/24/18 Gabapentin* (Gabapentin*) 100 Mg Capsule, 100 MG PO QHS, #90 CAP 05/24/18 Pantoprazole* (Pantoprazole*) 40 Mg Tablet.dr, 40 MG PO AC BREAKFAST, TAB 05/24/18 Ergocalciferol (Vitamin D2) (VITAMIN D2) 50,000 Unit Capsule, 87157 UNIT PO Q7D, CAP 05/24/18 Hydralazine Hcl* (Hydralazine Hcl*) 50 Mg Tab, 50 MG PO BID, #120 TAB 05/24/18 Amlodipine Besylate* (Amlodipine Besylate*) 10 Mg Tablet, 10 MG PO DAILY, #30 TAB 05/24/18 Ranitidine Hcl* (Ranitidine Hcl*) 150 Mg Tablet, 150 MG PO HS, #30 TAB 05/24/18 Ibuprofen* (Ibuprofen*) 400 Mg Tablet, 400 MG PO Q6H PRN for PAIN, TAB 05/24/18 Discontinued Reported Medications Esomeprazole Mag Trihydrate (Nexium) 40 Mg Capsule.dr, 40 MG PO DAILY, #30 CAP 05/24/18 Aspirin* (Aspirin* EC) 81 Mg Tablet.dr, 81 MG PO DAILY, TAB 05/24/18 Atorvastatin (Lipitor) 10 Mg Tablet 10/07/11 Clopidogrel Bisulfate (Plavix) 75 Mg Tablet 10/07/11 Hydralazine Hcl* (Hydralazine Hcl*) 50 Mg Tablet, 50 MG PO DAILY 06/03/11 Valsartan* (Diovan*) 80 Mg Tablet, 80 MG PO DAILY 06/03/11 Amlodipine Besylate* (Norvasc*) 10 Mg Tablet, 10 MG PO DAILY 06/03/11 Metoprolol (Lopressor) 50 Mg Tablet, 50 MG PO DAILY 06/03/11 [Unk Htn And Cardiac] No Conflict Check 06/02/11 Follow-up Plan PCP and neurology in one week Primary Care Provider Not On Staff Doctor Pending Labs Laboratory Tests Test 05/26/18 05:23 White Blood Count 8.0 10^3/ul (4.8-10.8) Red Blood Count 4.73 10^6/ul (4.20-5.40) Hemoglobin 13.4 g/dl (12.0-16.0) Hematocrit 41.1 % (37.0-47.0) Mean Corpuscular Volume 86.9 fl (82.0-101.0) Mean Corpuscular Hemoglobin 28.3 pg (29.0-33.0) Mean Corpuscular Hemoglobin Concent 32.6 g/dl (32.0-37.0) Red Cell Distribution Width 13.2 % (11.5-14.5) Platelet Count 255 10^3/UL (140-415) Mean Platelet Volume 11.4 fl (7.4-10.4) Immature Granulocytes % 0.300 % (0.001-0.429) Neutrophils % 63.5 % (39.0-77.0) Lymphocytes % 29.3 % (15.0-51.0) Monocytes % 5.7 % (0.0-11.0) Eosinophils % 0.6 % (0.0-7.0) Basophils % 0.6 % (0.0-2.0) Nucleated Red Blood Cells % 0.0 /100WBC (0.0-0.0) Immature Granulocytes # 0.020 10^3/ul (0.0-0.031) Neutrophils # 5.1 10^3/ul (1.6-7.5) Lymphocytes # 2.3 10^3/ul (0.8-2.9) Monocytes # 0.5 10^3/ul (0.3-0.9) Eosinophils # 0.1 10^3/ul (0.0-0.5) Basophils # 0.1 10^3/ul (0.0-0.1) Nucleated Red Blood Cells # 0.0 10^3/ul (0.0-0.0) Sodium Level 139 mmol/L (135-144) Potassium Level 4.0 mmol/L (3.5-5.1) Chloride Level 99 mmol/L (97-110) Carbon Dioxide Level 30 mmol/L (21-31) Anion Gap 10 (5-13) Blood Urea Nitrogen 19 mg/dl (7-20) Creatinine 0.69 mg/dl (0.44-1.00) Est Glomerular Filtrat Rate mL/min > 60 mL/min (>60) Glucose Level 131 mg/dl (70-220) Hemoglobin A1c 5.5 % (0-5.9) Calcium Level 9.6 mg/dl (8.4-10.2) Phosphorus Level 5.1 mg/dl (2.5-4.9) Magnesium Level 2.2 mg/dl (1.7-2.5) NORA JOSE MD May 26, 2018 15:04
== END 2018-05-26 17:55 | disposition home or self-care (01) | DRG 69 ==
LOC: E/R 20:26 → 6WM 22:17 → CANBEDREQ 22:29
PROVIDERS: ADMIT Internal Medicine; ATTEND Internal Medicine
DX: G45.9 Transient cerebral ischemic attack, unspecified (principal); I69.354 Hemiplegia and hemiparesis following cerebral infarction affecting left non-dominant side; I16.1 Hypertensive emergency; I10 Essential (primary) hypertension; K21.9 Gastro-esophageal reflux disease without esophagitis; F32.9 Major depressive disorder, single episode, unspecified; R47.81 Slurred speech; R13.10 Dysphagia, unspecified
CPT/HCPCS: 36415; 70450; 70490; 70496; 70498; 70551; 71045; 80048; 80053; 80061; 80307; 81003; 82550; 82553; 82962; 83036; 83735; 84100; 84484; 85025; 85610; 85730; 90686; 92610; 93005; 93306; 97161; 99291; J1650; Q9967